=== PATIENT | female | born 1960 | race Caucasian/White ===

== ENCOUNTER → 2018-06-21 | Outpatient (CLI) | payer OTHER ==
[~2018-06-21] MED LIST: AMLODIPINE BESYL5 MG PO; CIPRO500 MG PO; DIVALPROEX SOD500 M1 PO; ETODOLAC400 MG PO; FENOFIBRATE145 MG PO; HUMALOG MI100 UNIT/2 SQ; LAMOTRIGINE100 MG PO; LANSOPRAZOLE30 MG PO; LASIX20 MG PO; LISINOPRIL20 MG PO; MALOXICAM PO; METFORMIN HCL500 M2 PO; NOVOLOG MI100 UNITS/ SC; TRAZODONE HCL50 MG PO; VYTORIN 10-401 EACH PO; [UNRECOGNIZED DRUG - OTHER] PO
--- NOTE | 2018-06-21 15:23 | Diagnostic Imaging Report ---
EXAM: BONE MINERAL DENSITY HISTORY: Bone mineralization of evaluation COMPARISON: None DISCUSSION: Evaluation of the left hip lumbar spine and forearm was performed utilizing DEXA Hologic bone densitometer. The study is technically adequate. Left hip femoral neck bone mineral density: 0.78 g/cm2, T-score is -0.6, Z-score is 0.6. Left hip total bone mineral density: 0.99 g/cm2, T-score is 0.4, Z-score is 1.3. Lumbar spine total bone mineral density: 1.17 gm/cm2, T-score is 1.1, Z-score is 2.4. Proximal one third forearm bone mineral density: 0.74 gm/cm2, T-score is 0.9, Z-score is 2.2. Ultra distal forearm bone mineral density: 0.45 gm/cm2, T-score is 0.8, Z-score is 1.7. Impression: Bone mineralization by WHO Classification is normal. Signed by: Dr. Charbel Charles M.D. on 06/21/2018 3:19 PM
== END ==
LOC: DX 14:16
PROVIDERS: ATTEND Family Medicine
DX: E21.0 Primary hyperparathyroidism (principal)
CPT/HCPCS: 77080

== ENCOUNTER → 2021-06-02 | Emergency (ER) | payer OTHER ==
[~2021-06-02] VITALS: Ht 175.3 cm; Wt 108.9 kg
[~2021-06-02] MED LIST changes: +ACETAMINOPHEN 325 MG TAB ONE; +ACETAMINOPHEN 325 MG TAB PO ONE; +AZITHROMYCIN250 MG PO; +GUAIFEN-CODEINE5 ML PO; +ONDANSETRON HCL INJ 2MG/ML 2ML 2 MG/ML VIAL ONE; +ONDANSETRON ODT4 MG PO; +PIPERACILLIN/TAZOBACTAM 3.375 GM VIAL ONE; +SODIUM CHLORIDE 0.9% 100 ML ONE; +SODIUM CHLORIDE 0.9% 1000ML 1,000 ML ONE; +SODIUM CHLORIDE 0.9% 250ML 250 ML ONE; +Vancomycin IV 1 GM VIAL ONE
[2021-06-02] MEDS: ONDANSETRON HCL INJ 2MG/ML 2ML 2 MG/ML VIAL IV STA (17:15)
[2021-06-02] MEDS: SODIUM CHLORIDE 0.9% 1000ML 1,000 ML IV SCH (17:15)
== END | disposition home or self-care (01) ==
LOC: FSED 16:15
DX: J20.9 Acute bronchitis, unspecified (principal); B34.9 Viral infection, unspecified; E86.0 Dehydration; N28.9 Disorder of kidney and ureter, unspecified; I10 Essential (primary) hypertension; E78.5 Hyperlipidemia, unspecified; E11.9 Type 2 diabetes mellitus without complications; F31.9 Bipolar disorder, unspecified; Z88.6 Allergy status to analgesic agent; Z88.0 Allergy status to penicillin; Z88.8 Allergy status to other drugs, medicaments and biological substances
CPT/HCPCS: 71046; 80053; 81003; 82553; 84484; 85025; 99284; J2405; J7030; J2543; J3370; J7050